=== PATIENT | male | born 1990 | race Hispanic/Latino ===

== ENCOUNTER 2020-03-26 19:09 | Emergency (ER) | payer OTHER, SELFPAY ==
[2020-03-26] MEDS ORDERED: TETRACAINE HCL 0.5% 4ML OPTH ONE (19:49)
[2020-03-26] MEDS ORDERED: FLUORESCEIN SODIUM 1 MG/WRAP ONE (19:50)
--- NOTE | 2020-03-26 19:54 | ER ---
Nurse's Notes [facility] Name: Pravin Maria Jr Age: 29 yrs Sex: Male : 1990 Arrival Date: 03/26/2020 Time: 19:13 Bed 24 Private MD: Diagnosis: Injury of conjunctiva and corneal abrasion without foreign body, left eye Presentation: 03/26 19:22 Chief complaint: Patient states: Possible foreign body to left eye at 1400 today while ll1 working. + redness, watering, and irritation since. Coronavirus screen: Client denies travel out of the [place] in the last 14 days. At this time, the client does not indicate any symptoms associated with coronavirus-19. Ebola Screen: Patient denies travel to an Ebola-affected area in the 21 days before illness onset. Initial Sepsis Screen: Does the patient meet any 2 criteria? No. Patient's initial sepsis screen is negative. Risk Assessment: Do you want to hurt yourself or someone else? Patient reports no desire to harm self or others. Onset of symptoms was March 26, 2020. 19:22 Method Of Arrival: Ambulatory ll1 19:22 Acuity: REBECA 4 ll1 20:00 Initial Sepsis Screen: Does the patient have a suspected source of infection? Yes: ll1 Other: eye pain. Triage Assessment: 20:00 General: Appears uncomfortable, Behavior is calm, cooperative. ll1 Historical: - Allergies: 19:24 No Known Allergies; ll1 - PMHx: 19:24 None; ll1 - PSHx: 19:24 None; ll1 - Immunization history:: Flu vaccine is not up to date. - Social history:: Smoking status: Patient denies any tobacco usage or history of. Patient uses alcohol, only on a social basis. Patient/guardian denies using IV drugs. - Family history:: not pertinent. - Hospitalizations: : No recent hospitalization is reported. Screenin:00 Abuse screen: Denies threats or abuse. Nutritional screening: No deficits noted. ll1 Tuberculosis screening: No symptoms or risk factors identified. Fall Risk None identified. Total Georges Fall Scale indicates No Risk (0-24 pts). Assessment: 20:00 General: Appears uncomfortable, Behavior is calm, cooperative. Pain: Complains of pain ll1 in L eye Pain currently is 3 out of 10 on a pain scale. Quality of pain is described as aching, Pain began 4 hours ago. Is continuous. Neuro: No deficits noted. Cardiovascular: No deficits noted. Respiratory: No deficits noted. EENT: Eyes are tearing on outer aspect of conjuctiva of left eye, iris of left eye and inner aspect of conjunctiva of left eye possible foreign body. Reports pain in L eye. Vital Signs: 19:22 BP 131 / 81; Pulse 80; Resp 16; Temp 98.6; Pulse Ox 100% ; Pain 3/10; ll1 ED Course: 19:13 Patient arrived in ED. mr 19:23 Triage completed. ll1 19:24 Arm band placed on. ll1 19:35 Marcus Wilson MD is Attending Physician. rn 20:00 Assist provider with eye exam Performed by Marcus Wilson MD Patient tolerated well. ll1 Patient did not have IV access during this emergency room visit. 20:39 Patient has correct armband on for positive identification. Bed in low position. Call ll1 light in reach. Side rails up X 1. Cardiac monitoring not applicable on this patient. Administered Medications: No medications were administered Outcome: 19:53 Discharge ordered by . rn 20:13 Patient left the ED. ll1 20:13 Discharged to home ambulatory. ll1 20:13 Condition: stable 20:13 Discharge instructions given to patient, Instructed on discharge instructions, follow up and referral plans. medication usage, Demonstrated understanding of instructions, follow-up care, medications, Prescriptions given X 1. Signatures: Amanda Renae Marcus Wilson MD MD rn Lewis, Lynsay, RN RN [facility]
--- NOTE | 2020-03-26 19:54 | EDPHYS ---
Physician Documentation [facility] Name: Pravin Maria Jr Age: 29 yrs Sex: Male : 1990 Arrival Date: 03/26/2020 Time: 19:13 Bed 24 Private MD: ED Physician Marcus Wilson HPI: 03/26 19:50 This 29 yrs old Male presents to ER via Ambulatory with complaints of Eye rn Problem. 19:50 The patient sustained a scratch. Onset: The symptoms/episode began/occurred today. rn Duration: the symptoms are continuous. Aggravated by blinking, rubbing, Alleviated by nothing. Severity of symptoms: At their worst the symptoms were mild in the emergency department the symptoms are unchanged. The patient has not experienced similar symptoms in the past. Reports weed-eating/edging today, feels like branch or twig hit him in eye/face, + watery left eye, feels like something maybe in it or got scratched. . Historical: - Allergies: 19:24 No Known Allergies; ll1 - PMHx: 19:24 None; ll1 - PSHx: 19:24 None; ll1 - Immunization history:: Flu vaccine is not up to date. - Social history:: Smoking status: Patient denies any tobacco usage or history of. Patient uses alcohol, only on a social basis. Patient/guardian denies using IV drugs. - Family history:: not pertinent. - Hospitalizations: : No recent hospitalization is reported. ROS: 19:50 Constitutional: Negative for fever, chills, and weight loss, Eyes: + left eye pain and rn clear drainage Exam: 19:50 Constitutional: This is a well developed, well nourished patient who is awake, alert, rn and in no acute distress. Head/Face: Normocephalic, abrasion left cheek Eyes: PERRL, left eye with moderate corneal abrasion 9 o'clock position that extends upwards to sclear linearly, neg kathleen's sign, neg for hyphema. No foreign body identified, lids everted. Vital Signs: 19:22 BP 131 / 81; Pulse 80; Resp 16; Temp 98.6; Pulse Ox 100% ; Pain 3/10; ll1 MDM: 19:35 Patient medically screened. rn 19:50 Differential diagnosis: Corneal abrasion of Foreign body in. Differential diagnosis: rn Corneal abrasion of left eye. Data reviewed: vital signs, nurses notes. Data reviewed: and as a result, I will discharge patient. Counseling: I had a detailed discussion with the patient and/or guardian regarding: the historical points, exam findings, and any diagnostic results supporting the discharge/admit diagnosis, the need for outpatient follow up, to return to the emergency department if symptoms worsen or persist or if there are any questions or concerns that arise at home. Response to treatment: the patient's symptoms have markedly improved after treatment, and as a result, I will discharge patient. Special discussion: I discussed with the patient/guardian in detail that at this point there is no indication for admission to the hospital. It is understood, however, that if the symptoms persist or worsen the patient needs to return immediately for re-evaluation. Based on the history and exam findings, there is no indication for further emergent testing or inpatient evaluation. I discussed with the patient/guardian the need to see the opthamologist for further evaluation of the symptoms. Administered Medications: No medications were administered Disposition: 03/26/20 19:53 Discharged to Home. Impression: Injury of conjunctiva and corneal abrasion without foreign body, left eye. - Condition is Stable. - Discharge Instructions: Corneal Abrasion. - Prescriptions for Vigamox 0.5 % Ophthalmic Drops - instill 1 drop by OPHTHALMIC route every 8 hours for 7 days; 5 milliliter. - Medication Reconciliation Form, Thank You Letter, Antibiotic Education, Prescription Opioid Use form. - Follow up: Private Physician; When: As needed; Reason: Recheck today's complaints, Re-evaluation by your physician. - Problem is new. - Symptoms have improved. Signatures: Marcus Wilson MD MD rn Lewis, Lynsay, RN RN ll1 Corrections: (The following items were deleted from the chart) 20:13 19:53 03/26/2020 19:53 Discharged to Home. Impression: Injury of conjunctiva and ll1 corneal abrasion without foreign body, left eye. Condition is Stable. Forms are Medication Reconciliation Form, Thank You Letter, Antibiotic Education, Prescription Opioid Use. Follow up: Private Physician; When: As needed; Reason: Recheck today's complaints, Re-evaluation by your physician. Problem is new. Symptoms have improved. rn
[2020-03-26 20:18] VITALS: BP 131/81; TEMP 98.6; O2SAT 100
== END 2020-03-26 20:13 | disposition home or self-care (01) ==
LOC: ER 19:09
DX: S05.02XA Injury of conjunctiva and corneal abrasion without foreign body, left eye, initial encounter (principal); W22.8XXA Striking against or struck by other objects, initial encounter; Y93.89 Activity, other specified; Y92.9 Unspecified place or not applicable
CPT/HCPCS: 99283

== ENCOUNTER 2021-03-10 14:39 | Emergency (ER) | payer SELFPAY ==
--- NOTE | 2021-03-10 17:19 | EDPHYS ---
Physician Documentation [facility] Name: Pravin Maria Jr Age: 30 yrs Sex: Male : 1990 Arrival Date: 03/10/2021 Time: 14:39 Bed 6 Private MD: ED Physician Bird Oliva HPI: 03/10 16:36 This 30 yrs old Male presents to ER via Ambulatory with complaints of Body jr8 Aches, Fever. 16:36 This is a 30-year-old male that presented to the emergency room with complaints of jr8 fever, body aches, chills, cough for the past 4 days. Significant other tested positive for Covid and he had become symptomatic. Thought he was improving but then started to feel bad about 2 days ago. Wanted to be evaluated. Has not had a formal COVID-19 PCR swab or antigen test completed.. Severity of symptoms: At their worst the symptoms were mild in the emergency department the symptoms are unchanged. The patient has not experienced similar symptoms in the past. The patient has not recently seen a physician. Historical: - Allergies: 14:58 No Known Allergies; ss - Home Meds: 14:58 None [Active]; ss - PMHx: 14:58 None; ss - PSHx: 14:58 None; ss - Immunization history:: Client reports having NOT received the Covid vaccine. - Social history:: Smoking status: Patient denies any tobacco usage or history of. ROS: 16:36 Cardiovascular: Negative for chest pain, palpitations, and edema, Abdomen/GI: Negative jr8 for abdominal pain, nausea, vomiting, diarrhea, and constipation, Back: Negative for injury and pain, MS/Extremity: Negative for injury and deformity, Skin: Negative for injury, rash, and discoloration, Neuro: Negative for headache, weakness, numbness, tingling, and seizure. 16:36 Constitutional: Positive for body aches, chills, fatigue, fever. 16:36 Respiratory: Positive for cough, Negative for shortness of breath, sputum production, wheezing. Exam: 16:36 Constitutional: This is a well developed, well nourished patient who is awake, alert, jr8 and in no acute distress. ENT: Nares patent. No nasal discharge, no septal abnormalities noted. Tympanic membranes are normal and external auditory canals are clear. Oropharynx with no redness, swelling, or masses, exudates, or evidence of obstruction, uvula midline. Mucous membranes moist. Neck: Trachea midline, no thyromegaly or masses palpated, and no cervical lymphadenopathy. Supple, full range of motion without nuchal rigidity, or vertebral point tenderness. No Meningismus. Cardiovascular: Regular rate and rhythm with a normal S1 and S2. No gallops, murmurs, or rubs. Normal PMI, no JVD. No pulse deficits. Respiratory: Lungs have equal breath sounds bilaterally, clear to auscultation and percussion. No rales, rhonchi or wheezes noted. No increased work of breathing, no retractions or nasal flaring. Abdomen/GI: Soft, non-tender, with normal bowel sounds. No distension or tympany. No guarding or rebound. No evidence of tenderness throughout. Skin: Warm, dry with normal turgor. Normal color with no rashes, no lesions, and no evidence of cellulitis. MS/ Extremity: Pulses equal, no cyanosis. Neurovascular intact. Full, normal range of motion. Neuro: Awake and alert, GCS 15, oriented to person, place, time, and situation. Cranial nerves II-XII grossly intact. Motor strength 5/5 in all extremities. Sensory grossly intact. Vital Signs: 14:56 BP 122 / 82; Pulse 84; Resp 17; Temp 98.5(TE); Pulse Ox 98% on R/A; Weight 79.38 kg; ss Height 5 ft. 9 in. (175.26 cm); Pain 0/10; 16:15 BP 120 / 88; Pulse 82; Resp 15; Pulse Ox 97% ; hb 14:56 Body Mass Index 25.84 (79.38 kg, 175.26 cm) ss MDM: 14:42 Patient medically screened. 8 16:36 Data reviewed: vital signs, nurses notes, lab test result(s), and as a result, I will jr discharge patient. Data interpreted: Pulse oximetry: on room air is 97 %. Interpretation: normal. Counseling: I had a detailed discussion with the patient and/or guardian regarding: the historical points, exam findings, and any diagnostic results supporting the discharge/admit diagnosis, lab results, the need for outpatient follow up, a family practitioner, to return to the emergency department if symptoms worsen or persist or if there are any questions or concerns that arise at home. 03/10 17:17 Order name: SARS-COV-2 RT PCR; Complete Time: 17:17 EDMS Administered Medications: No medications were administered Disposition: 18:50 Co-signature as Attending Physician, Bird Oliva MD. pkl Disposition Summary: 03/10/21 17:18 Discharge Ordered Location: Home jr8 Problem: new jr8 Symptoms: are unchanged jr8 Condition: Stable jr8 Diagnosis - Pneumonia due to SARS-associated coronavirus jr8 Followup: jr8 - With: Private Physician - When: 1 week - Reason: Recheck today's complaints, Continuance of care, Re-evaluation by your physician Discharge Instructions: - COVID-19 jr8 - Discharge Summary Sheet eb Forms: - Medication Reconciliation Form jr8 - Thank You Letter jr8 - Antibiotic Education jr8 - Prescription Opioid Use jr8 - Work release form eb Prescriptions: - promethazine-DM 6.25-15 mg/5 mL Oral syrup - take 5 milliliter by ORAL route every 6 hours As needed as needed; 120 jr8 milliliter; Refills: 0, Product Selection Permitted Signatures: Dispatcher [employer] EDMS Bird Oliva MD MD pkl Maggy Ang RN RN ss Matheus Villalta PA PA jr8 Corrections: (The following items were deleted from the chart) 16:12 15:46 CORONAVIRUS+ ordered. EDNE EDMS
--- NOTE | 2021-03-10 17:19 | ER ---
Nurse's Notes [facility] Name: Pravin Maria Jr Age: 30 yrs Sex: Male : 1990 Arrival Date: 03/10/2021 Time: 14:39 Bed 6 Private MD: Diagnosis: Pneumonia due to SARS-associated coronavirus Presentation: 03/10 14:56 Chief complaint: Patient states: Dizziness when turning head and R ear pain x 5-6 days. ss PT now reports body aches and shortness of breath that began 2 days ago. Coronavirus screen: Client denies travel out of the [place] in the last 14 days. Ebola Screen: Patient denies exposure to infectious person. Patient denies travel to an Ebola-affected area in the 21 days before illness onset. Initial Sepsis Screen: Does the patient meet any 2 criteria? No. Patient's initial sepsis screen is negative. Does the patient have a suspected source of infection? No. Patient's initial sepsis screen is negative. Risk Assessment: Do you want to hurt yourself or someone else? Patient reports no desire to harm self or others. Onset of symptoms was March 04, 2021. 14:56 Method Of Arrival: Ambulatory ss 14:56 Acuity: REBECA 4 ss Historical: - Allergies: 14:58 No Known Allergies; ss - Home Meds: 14:58 None [Active]; ss - PMHx: 14:58 None; ss - PSHx: 14:58 None; ss - Immunization history:: Client reports having NOT received the Covid vaccine. - Social history:: Smoking status: Patient denies any tobacco usage or history of. Screenin:45 Abuse screen: Denies threats or abuse. Denies injuries from another. Nutritional hb screening: No deficits noted. Tuberculosis screening: No symptoms or risk factors identified. Fall Risk None identified. Assessment: 15:00 General: Appears in no apparent distress. Behavior is calm, cooperative. Pain: Pain hb currently is 3 out of 10 on a pain scale. Neuro: Level of Consciousness is awake, alert, obeys commands, Oriented to person, place, time, situation. Cardiovascular: Patient's skin is warm and dry. Respiratory: Respiratory effort is even, unlabored, Respiratory pattern is regular, symmetrical. GI: No signs and/or symptoms were reported involving the gastrointestinal system. : No signs and/or symptoms were reported regarding the genitourinary system. EENT: No signs and/or symptoms were reported regarding the EENT system. Derm: Skin is pink, warm \T\ dry. Musculoskeletal: Reports body aches. 16:00 Reassessment: Patient appears in no apparent distress at this time. Patient and/or hb family updated on plan of care and expected duration. Pain level reassessed. Patient is alert, oriented x 3, equal unlabored respirations, skin warm/dry/pink. Vital Signs: 14:56 BP 122 / 82; Pulse 84; Resp 17; Temp 98.5(TE); Pulse Ox 98% on R/A; Weight 79.38 kg; Height 5 ft. 9 in. (175.26 cm); Pain 0/10; 16:15 BP 120 / 88; Pulse 82; Resp 15; Pulse Ox 97% ; hb 14:56 Body Mass Index 25.84 (79.38 kg, 175.26 cm) ED Course: 14:39 Patient arrived in ED. ds1 14:42 Matheus Villalta PA is PHCP. jr8 14:42 Bird Oliva MD is Attending Physician. jr8 14:45 Candida Rao, CAROL is Primary Nurse. 14:45 Arm band placed on. hb 14:58 Triage completed. 15:15 Patient has correct armband on for positive identification. Bed in low position. Call hb light in reach. 17:30 No provider procedures requiring assistance completed. Patient did not have IV access hb during this emergency room visit. Administered Medications: No medications were administered Outcome: 17:18 Discharge ordered by . [facility] 17:30 Discharged to home ambulatory. hb 17:30 Condition: stable 17:30 Discharge instructions given to patient, Instructed on discharge instructions, follow up and referral plans. medication usage, Demonstrated understanding of instructions, follow-up care, medications, Prescriptions given X 1. 17:43 Patient left the ED. hb Signatures: Megha Knox ds1 Maggy Ang, CAROL RN Matheus Villalta PA PA jr8 Candida Rao, CAROL RN hb
[2021-03-10 17:48] VITALS: TEMP 98.5
[2021-03-10 17:49] VITALS: BP 120/88; O2SAT 97
== END 2021-03-10 17:43 | disposition home or self-care (01) ==
LOC: ER 14:39
DX: U07.1 COVID-19 (principal); J12.82 Pneumonia due to coronavirus disease 2019
CPT/HCPCS: 99282; U0003